=== PATIENT | female | born 1970 | race Caucasian/White ===

== ENCOUNTER 2018-05-27 05:40 | Inpatient (IN) | payer BC ==
[2018-05-26 11:20] LABS: BASOPHILS % (AUTO) 0.8 % (0.0-2.0); EOSINOPHILS # (AUTO) 0.2 K/uL (0.0-0.4); EOSINOPHILS % (AUTO) 4.8 % (0.0-4.0); HEMATOCRIT 37.9 % (36-48); HEMOGLOBIN 12.4 g/dL (12.0-16.0); LYMPHOCYTES # (AUTO) 1.4 K/uL (1.0-5.5); MEAN CORPUSCULAR HEMOGLOBIN 29 pg (27-31); MEAN CORPUSCULAR HGB CONC 33 % (32-36); MEAN CORPUSCULAR VOLUME 90 fL (79.0-98.0); MONOCYTES # (AUTO) 0.3 K/uL (0.0-1.0); MONOCYTES % (AUTO) 5.5 % (1.7-9.3); NEUTROPHILS # (AUTO) 3.1 K/uL (1.8-7.7); NEUTROPHILS % (AUTO) 60.9 % (40.0-70.0); PLATELET COUNT (AUTO) 211 K/uL (130-430); RED CELL DISTRIBUTION WIDTH 12.1 % (9.0-15.0)
[2018-05-26 11:42] LABS: ALBUMIN 3.5 g/dL (3.4-4.8); CREATININE 0.68 mg/dL (0.55-1.30); POTASSIUM 3.8 mmol/L (3.5-5.1); TOTAL BILIRUBIN 0.4 mg/dL (0.0-1.0)
[~2018-05-27] VITALS: Ht 167.6 cm; Wt 111.6 kg
[2018-05-27] MEDS ORDERED: MIDAZOLAM HCL 5 MG/5 ML VIAL IVP ONE (07:25)
[2018-05-27] MEDS ORDERED: ONDANSETRON HCL 4 MG/2 ML VIAL IVP ONE (07:25)
[2018-05-27] MEDS ORDERED: PROPOFOL 200MG/ 20ML VIAL (DIPRIVAN) IV ONE (07:25)
[2018-05-27] MEDS ORDERED: NS IRRIG SOLN 1000 ML IR ONE (07:25)
[2018-05-27] MEDS ORDERED: ROCURONIUM BROMIDE 10 MG/ML (ZEMURON) IV ONE (07:25)
[2018-05-27] MEDS ORDERED: LR 1,000 ML IV.SOLN IV ONE (07:25)
[2018-05-27] MEDS ORDERED: BUPIVACAINE /PF 0.25% 30 ML VIAL INJ ONE (07:25)
[2018-05-27] MEDS ORDERED: fentaNYL CITRATE/PF 100 MCG/2 ML AMP IVP ONE (07:25)
[2018-05-27] MEDS ORDERED: SEVOFLURANE 15 MIN GAS INH ONE (07:25)
[2018-05-27] MEDS ORDERED: fentaNYL CITRATE 250 MCG/5 ML AMP IV ONE (07:25)
[2018-05-27] MEDS ORDERED: NEOSTIGMINE METHYLSULFATE 1 MG/ML, 10 ML VIAL IVP ONE (07:25)
[2018-05-27] MEDS ORDERED: GLYCOPYRROLATE 0.2 MG/ML VIAL IJ ONE (07:25)
[2018-05-27] MEDS ORDERED: ROPIVACAINE 0.2% (NAROPIN) PF SOLUTION 100 ML BOTTLE EP ONE (07:25)
[2018-05-27] MEDS ORDERED: CEFAZOLIN 2 GM IVPB PREMIX 50 ML IV ONE (07:25)
[2018-05-27] MEDS ORDERED: LR 1,000 ML IV SCH (09:41)
[2018-05-27] MEDS ORDERED: HYDROmorphone 1 MG INJ. 1 MG/ML AMPUL IVP PRN (09:45)
[2018-05-27] MEDS ORDERED: HYDROmorphone 2 MG/ML VIAL IVP PRN (09:45)
[2018-05-27] MEDS ORDERED: ONDANSETRON HCL 4 MG/2 ML VIAL IVP PRN ×4 (09:45→14:15)
[2018-05-27] MEDS ORDERED: SENNOSIDES/DOCUSATE SODIUM 1 TAB TABLET(SENOKOT-S) PO PRN (11:00)
[2018-05-27] MEDS ORDERED: BISACODYL 10 MG/SUPPOSITORY RC PRN (11:00)
[2018-05-27] MEDS: LR 1,000 ML IV SCH ×2 (11:00→18:59)
[2018-05-27] MEDS ORDERED: DOCUSATE SODIUM 100 MG CAPSULE PO PRN (11:00)
[2018-05-27] MEDS: HYDROmorphone 1 MG INJ. 1 MG/ML AMPUL IVP PRN ×2 (11:15→11:40)
[2018-05-27] MEDS ORDERED: ONDANSETRON HCL 4 MG/2 ML VIAL ONE (11:18)
[2018-05-27] MEDS ORDERED: HYDROmorphone 1 MG INJ. 1 MG/ML AMPUL ONE ×2 (11:21→11:46)
[2018-05-27] MEDS: KETOROLAC TROMETHAMINE 30 MG VIAL IVP SCH ×3 (12:00→17:44)
[2018-05-27 12:15] VITALS: BP_SYST 108
[2018-05-27] MEDS ORDERED: SYN50 PO (12:27)
[2018-05-27 13:17] VITALS: BP_SYST 128
[2018-05-27] MEDS ORDERED: ROPIVACAINE 0.2% 550 ML INJ SCH ×2 (14:07)
[2018-05-27] MEDS ORDERED: NALBUPHINE HCL 10 MG/ML AMP IVP PRN ×2 (14:15)
[2018-05-27] MEDS ORDERED: DIPHENHYDRAMINE INJ 50 MG/ML VIAL IVP PRN ×2 (14:15)
[2018-05-27 16:00] VITALS: BP_SYST 105
[2018-05-27 20:18] VITALS: BP_SYST 114
[2018-05-27] MEDS ORDERED: TEMAZEPAM 15 MG CAPSULE PO PRN (21:00)
[2018-05-27 22:44] VITALS: BP_SYST 140
[2018-05-28] MEDS: LR 1,000 ML IV SCH (00:59)
[2018-05-28] MEDS: KETOROLAC TROMETHAMINE 30 MG VIAL IVP SCH ×2 (00:59→06:28)
[2018-05-28 06:24] LABS: BASOPHILS % (AUTO) 0.5 % (0.0-2.0); EOSINOPHILS # (AUTO) 0.1 K/uL (0.0-0.4); EOSINOPHILS % (AUTO) 1.2 % (0.0-4.0); HEMATOCRIT 31.6 % (36-48); HEMOGLOBIN 10.6 g/dL (12.0-16.0); LYMPHOCYTES # (AUTO) 1.2 K/uL (1.0-5.5); LYMPHOCYTES % (AUTO) 17.5 % (20.5-51.5); MEAN CORPUSCULAR HEMOGLOBIN 30 pg (27-31); MEAN CORPUSCULAR HGB CONC 34 % (32-36); MEAN CORPUSCULAR VOLUME 91 fL (79.0-98.0); MONOCYTES # (AUTO) 0.5 K/uL (0.0-1.0); MONOCYTES % (AUTO) 7.1 % (1.7-9.3); NEUTROPHILS # (AUTO) 5.1 K/uL (1.8-7.7); NEUTROPHILS % (AUTO) 73.7 % (40.0-70.0); PLATELET COUNT (AUTO) 151 K/uL (130-430); RED BLOOD CELL COUNT(AUTO) 3.48 MIL/uL (4.2-6.2); RED CELL DISTRIBUTION WIDTH 11.9 % (9.0-15.0); WHITE BLOOD COUNT (AUTO) 6.9 K/uL (4.8-10.8)
[2018-05-28 06:49] LABS: ALBUMIN 2.7 g/dL (3.4-4.8); CALCIUM 8.2 mg/dL (8.4-11.0); CREATININE 0.69 mg/dL (0.55-1.30); POTASSIUM 3.6 mmol/L (3.5-5.1); TOTAL BILIRUBIN 0.5 mg/dL (0.0-1.0)
[2018-05-28] MEDS ORDERED: OXYCODONE/ACETAMINOPHEN 5-325 TABLET PO PRN (08:00)
[2018-05-28] MEDS: IBUPROFEN 600 MG TABLET PO SCH ×4 (08:00→23:00)
[2018-05-28 08:52] VITALS: BP_SYST 117
[2018-05-28] MEDS ORDERED: IBUPROFEN 600 MG TABLET PO ONE (09:00)
[2018-05-28] MEDS: SIMETHICONE 80 MG TAB.CHEW PO PRN ×4 (09:06→22:59)
[2018-05-28 12:50] VITALS: BP_SYST 133
[2018-05-28 16:30] VITALS: BP_SYST 120
[2018-05-28 20:00] VITALS: BP_SYST 130
[2018-05-28] MEDS: NORMAL SALINE 5 ML DISP.SYRIN IVF SCH (22:56)
[2018-05-29 00:42] VITALS: BP_SYST 133
[2018-05-29] MEDS: IBUPROFEN 600 MG TABLET PO SCH ×3 (05:22→18:20)
[2018-05-29] MEDS: NORMAL SALINE 5 ML DISP.SYRIN IVF SCH ×2 (05:23→15:06)
[2018-05-29 08:15] VITALS: BP_SYST 134
[2018-05-29 12:26] VITALS: BP_SYST 131
[2018-05-29 15:26] VITALS: BP_SYST 131
[2018-05-29 16:40] VITALS: BP_SYST 133
[2018-05-29] MEDS: SIMETHICONE 80 MG TAB.CHEW PO PRN (18:19)
== END 2018-05-29 18:43 | disposition home or self-care (01) | DRG 742 ==
LOC: SDS 05:40 → SMU 10:56 → SDS 11:04 → SMU 11:05
PROVIDERS: ADMIT Obstetrics & Gynecology; ATTEND Obstetrics & Gynecology
PROC: 0UT90ZL Resection of Uterus, Supracervical, Open Approach (ICD-10-PCS; principal; 2018-05-28)
DX: N93.9 Abnormal uterine and vaginal bleeding, unspecified (principal); E87.1 Hypo-osmolality and hyponatremia; K42.9 Umbilical hernia without obstruction or gangrene; K66.0 Peritoneal adhesions (postprocedural) (postinfection); Z68.38 Body mass index [BMI] 38.0-38.9, adult; Z90.721 Acquired absence of ovaries, unilateral
CPT/HCPCS: 36415; 80053; 85025; 86886; 86900; 86901; 87081; 88307; 90656; 94010; C1727; E0190; J0690; J1170; J1885; J2250; J2405; J2704; J2710; J2795; J3010; J3490; J7120